=== PATIENT | male | born 1990 | race African-American/Black ===

== ENCOUNTER 2018-05-20 17:00 | Emergency (ER) | payer OTHER ==
[2018-05-20] MEDS ORDERED: IBUPROFEN 400 MG TABLET PO STA (17:03)
--- NOTE | 2018-05-20 17:04 | ED Physician Documentation ---
History of Present Illness - Stated complaint Stated Complaint: L ANKLE INJURY - Additonal information Additional information: hx from pt playing bball inverted ankle pain to lat ankle above post to lat mall no knee or foot pain Review of Systems Musculoskeletal: reports: Pain with weight bearing PD PAST MEDICAL HISTORY - Allergies Allergies/Adverse Reactions: Allergies Allergy/AdvReac Type Severity Reaction Status Date / Time No Known Drug Allergies Allergy Verified 05/20/18 17:16 PD ED PE NORMAL - Vitals Vital signs reviewed: Yes - Extremities Extremities: Other (LLE" knee and tib fib and foot NT, no lat mall pain, TTP soft tissue posterior and sup to lat mall, no open wound, MSV intact) Results - Vitals Vitals: Vital Signs - 24 hr 05/20/18 17:06 Temperature 36.5 C Heart Rate 65 Respiratory 16 Rate Blood Pressure 123/86 H O2 Saturation 100 Oxygen O2 Source Room air - Rads (name of study) ankle Radiology: See rad report (no fx) PD MEDICAL DECISION MAKING - Sepsis Event Vital Signs: Vital Signs - 24 hr 05/20/18 17:06 Temperature 36.5 C Heart Rate 65 Respiratory 16 Rate Blood Pressure 123/86 H O2 Saturation 100 Oxygen O2 Source Room air Departure - Departure Disposition: 01 Home, Self Care Clinical Impression: Left ankle sprain Qualifiers: Encounter type: initial encounter Involved ligament of ankle: unspecified ligament Qualified Code(s): S93.402A - Sprain of unspecified ligament of left ankle, initial encounter Condition: Good Instructions: ED Sprain Ankle W X Ray Follow-Up: [facility] [Provider Group] Comments: Thankfully the xray does not show any fracture Recommend an NUPUR wrap, ice and elevation to decrease the swelling. Motrin and tylneol for pain Use the crutches to decrease the wieght bearing stress May gradually start bearing weight as tolerated. If still too painful to bear weight in 2 weeks, follow up with [facility] for a recheck and consideration of further imaging Physical therapy may be help the ankle heal stronger without laxity - ask [facility] how to access Forms: Activity restrictions
[2018-05-20 17:17] VITALS: BP 123/86
--- NOTE | 2018-05-20 17:54 | XRAY Report ---
Reason: rolled L ankle playing BBall Procedure Date: 05/20/2018 Accession Number: [id number] / [id number] Procedure: XR - Ankle 3 View LT CPT Code: FULL RESULT: EXAM: LEFT ANKLE RADIOGRAPHY EXAM DATE: 05/20/2018 05:34 PM. CLINICAL HISTORY: Ankle pain COMPARISON: None. TECHNIQUE: 3 views. FINDINGS: Bones: No fracture or focal bony lesion. Joints: No evidence of dislocation. Soft Tissues: No unexpected soft tissue findings. IMPRESSION: No evidence of fracture or dislocation. [facility]
== END 2018-05-20 19:39 | disposition home or self-care (01) ==
LOC: ED 17:00
DX: S93.402A Sprain of unspecified ligament of left ankle, initial encounter (principal); X50.1XXA Overexertion from prolonged static or awkward postures, initial encounter; Y93.67 Activity, basketball
CPT/HCPCS: 73610; 99282; 99283; A9270

== ENCOUNTER 2018-07-21 07:47 | Outpatient (CLI) | payer OTHER ==
--- NOTE | 2018-07-21 15:57 | MRI Report ---
Reason: PAIN IN LEFT ANKLE AND JOINTS Procedure Date: 07/21/2018 Accession Number: [id number] / [id number] Procedure: MRI - Ankle LT W/O CPT Code: FULL RESULT: EXAM: LEFT ANKLE/HINDFOOT MRI WITHOUT CONTRAST. EXAM DATE: 07/21/2018 08:02 AM. CLINICAL HISTORY: Left ankle joint pain after inversion injury. COMPARISON: 05/20/2018 radiographs. TECHNIQUE: Multiplanar, multisequence T1-weighted and fluid-sensitive sequences of the ankle/hindfoot without contrast. Other: None. FINDINGS: Bones: No fractures. Edema is in the talus near the sinus tarsi. There is also a small amount of edema in the sustentaculum darya. Articular Cartilage: Unremarkable. Ligaments: The anterior and posterior tibiofibular, anterior and posterior talofibular, and calcaneofibular ligaments are intact. The deep and superficial deltoid and spring ligaments are intact. Anterior Tendons: The tibialis anterior, extensor hallucis longus, and extensor digitorum longus tendons are unremarkable. Medial Tendons: The tibialis posterior, flexor digitorum longus, and flexor hallucis longus tendons are unremarkable. Lateral Tendons: The peroneus brevis tendon demonstrates a longitudinal tear . The peroneus longus tendon is intact. Achilles Tendon: The Achilles tendon is unremarkable. Musculature: No edema or fatty atrophy. Other: There is a mild effusion of the posterior subtalar joint. The contents of the sinus tarsi and tarsal tunnel are unremarkable. No plantar fasciitis. The subcutaneous tissues are unremarkable. IMPRESSION: 1. Bony marrow edema surrounding the sinus tarsi without edema of the fat of the sinus tarsi may indicate residual bony contusion. 2. Longitudinal split tear of the peroneus brevis tendon. [facility] MUSCULOSKELETAL RADIOLOGY SECTION
== END 2018-07-21 07:48 | disposition home or self-care (01) ==
LOC: DI 07:47
PROVIDERS: ATTEND Family Medicine
DX: S96.812A Strain of other specified muscles and tendons at ankle and foot level, left foot, initial encounter (principal)

== ENCOUNTER 2019-09-01 16:15 | Emergency (ER) | payer OTHER ==
[2019-09-01 17:20] LABS: BILIRUBIN,URINE NEGATIVE (NEGATIVE); GLUCOSE, URINE (UA) NEGATIVE (NEGATIVE); KETONES,URINE (UA) NEGATIVE (NEGATIVE); LEUKOCYTE ESTERASE, URINE NEGATIVE (NEGATIVE); NITRITE,URINE NEGATIVE (NEGATIVE); OCCULT BLOOD,URINE NEGATIVE (NEGATIVE); PH,URINE 6.5 PH (5.0-7.5); PROTEIN,URINE NEGATIVE (NEGATIVE); UROBILINOGEN,URINE 0.2 (NORMAL) E.U./dL (NORMAL)
[2019-09-01 17:21] LABS: CLARITY,URINE CLEAR (CLEAR)
[2019-09-01] MEDS ORDERED: AZITHROMYCIN 250 MG TABLET PO STA (18:07)
[2019-09-01] MEDS ORDERED: cefTRIAXone 250 MG VIAL IM STA (18:07)
[2019-09-01] MEDS ORDERED: LIDOCAINE 1% 2 ML VIAL MC ONE (18:07)
--- NOTE | 2019-09-01 18:08 | ED Physician Documentation ---
PD HPI MALE - Stated complaint Stated Complaint: MALE /ABD PX - Chief complaint Chief Complaint: UTI - History obtained from History obtained from: Patient - History of Present Illness Timing - onset: Other (For about 2 or 3 weeks he has had what sound like bladder spasms, frequency, no dysuria but occasional foul smell. He denies risk for STDs, but his significant other is in the room when we talk. No discharge.) Review of Systems Constitutional: denies: Fever, Chills GI: denies: Nausea, Vomiting, Diarrhea : reports: Frequency. denies: Dysuria, Hesitancy, Incontinent PD PAST MEDICAL HISTORY - Past Medical History Past Medical History: Yes Cardiovascular: None Respiratory: None Neuro: Migraines Endocrine/Autoimmune: None GI: None : None HEENT: None Psych: None Musculoskeletal: None Derm: None - Past Surgical History Past Surgical History: No - Allergies Allergies/Adverse Reactions: Allergies Allergy/AdvReac Type Severity Reaction Status Date / Time No Known Drug Allergies Allergy Verified 09/01/19 16:45 - Social History Does the pt smoke?: No Smoking Status: Never smoker Does the pt drink ETOH?: Yes Does the pt have substance abuse?: No - Immunizations Immunizations are current?: Yes - POLST Patient has POLST: No PD ED PE NORMAL - Vitals Vital signs reviewed: Yes - General General: Alert and oriented X 3, No acute distress - Abdomen Abdomen: Soft, Non tender - Male Male : Other (No significant inguinal adenopathy or masses, testes are normal, circumcised genitalia) - Neuro Neuro: Alert and oriented X 3, Normal speech Results - Vitals Vitals: Vital Signs - 24 hr 09/01/19 16:45 Temperature 36.8 C Heart Rate 69 Respiratory 16 Rate Blood Pressure 121/70 O2 Saturation 98 Oxygen O2 Source Room air - Labs Labs: Laboratory Tests 09/01/19 16:54 Urine Color YELLOW Urine Clarity CLEAR Urine pH 6.5 Ur Specific [place] 1.020 Urine Protein NEGATIVE Urine Glucose (UA) NEGATIVE Urine Ketones NEGATIVE Urine Occult Blood NEGATIVE Urine Nitrite NEGATIVE Urine Bilirubin NEGATIVE Urine Urobilinogen 0.2 (NORMAL) Ur Leukocyte Esterase NEGATIVE Ur Microscopic Review NOT INDICATED Urine Culture Comments NOT INDICATED PD MEDICAL DECISION MAKING - ED course ED course: Given his young age, suspicion for STD is high given the normal urinalysis. He is administered Rocephin and Zithromax here. Departure - Departure Disposition: 01 Home, Self Care Clinical Impression: Bladder spasms Condition: Good Record reviewed to determine appropriate education?: Yes Instructions: ED UTI Cystitis Male Comments: If symptoms are persistent despite the antibiotics, call your doctor to arrange a follow-up appointment, I would recommend follow-up with urology in that case for further evaluation and treatment. Return for new or worsening symptoms.
[2019-09-01 18:24] VITALS: BP 127/79
[2019-09-02 16:38] LABS: TRICHOMONAS VAGINALIS DNA NEGATIVE (NEGATIVE)
== END 2019-09-01 18:24 | disposition home or self-care (01) ==
LOC: ED 16:15
DX: N32.89 Other specified disorders of bladder (principal)
CPT/HCPCS: 81003; 87491; 87591; 87661; 96372; 99283; A9270; 81001; 87086

== ENCOUNTER 2020-04-06 22:07 | Emergency (ER) | payer OTHER ==
[2020-04-06] MEDS ORDERED: ONDANSETRON ODT 4 MG TABLET TL STA (23:34)
[2020-04-06] MEDS ORDERED: ONDANSETRON ODT 4 MG Prepack 2 TL PRN (23:34)
--- NOTE | 2020-04-06 23:39 | ED Physician Documentation ---
History of Present Illness - Stated complaint Stated Complaint: NAUSEA, VOMITTING - Chief complaint Chief Complaint: Abd Pain - History obtained from History obtained from: Patient - Additonal information Additional information: Patient comes emergency department complaining of vomiting that started this evening. He states he began to feel nauseated around 2100 after having a normal and dairy dessert at [facility]. Patient states he is lactose intolerant but that he did not eat any dairy this evening. He states that he has not had any fevers or chills and no sick contacts. No diarrhea. He states that by 2200 this evening, he began to vomit. States he vomited a number of times until his stomach was empty, and then since then, he has been having nausea that comes and goes. He has had one other episode of vomiting which was just bile. No other complaints at this time. Review of Systems Ten Systems: 10 systems reviewed and negative Constitutional: reports: Reviewed and negative Eyes: reports: Reviewed and negative Ears: reports: Reviewed and negative Nose: reports: Reviewed and negative Throat: reports: Reviewed and negative Cardiac: reports: Reviewed and negative Respiratory: reports: Reviewed and negative GI: reports: Nausea, Vomiting : reports: Reviewed and negative Skin: reports: Reviewed and negative Musculoskeletal: reports: Reviewed and negative Neurologic: reports: Reviewed and negative Psychiatric: reports: Reviewed and negative Endocrine: reports: Reviewed and negative Immunocompromised: reports: Reviewed and negative PD PAST MEDICAL HISTORY - Past Medical History Past Medical History: Yes Cardiovascular: None Respiratory: None Neuro: Migraines Endocrine/Autoimmune: None GI: None : None HEENT: None Psych: Other Musculoskeletal: None Derm: None Other Past Medical History: Insomnia - Past Surgical History Past Surgical History: No - Present Medications Home Medications: Ambulatory Orders Medication Instructions Recorded Confirmed Ondansetron Odt [Zofran Odt] 4 mg TL Q6H PRN #10 tablet 04/06/20 traZODone [Desyrel] 50 mg PO HS PRN 04/06/20 04/06/20 - Allergies Allergies/Adverse Reactions: Allergies Allergy/AdvReac Type Severity Reaction Status Date / Time No Known Drug Allergies Allergy Verified 04/06/20 22:16 - Social History Does the pt smoke?: No Smoking Status: Never smoker Does the pt drink ETOH?: Yes Does the pt have substance abuse?: No - Immunizations Immunizations are current?: Yes - POLST Patient has POLST: No PD ED PE NORMAL - Vitals Vital signs reviewed: Yes - General General: Alert and oriented X 3, No acute distress - HEENT HEENT: Atraumatic, PERRL, EOMI, Moist mucous membranes - Neck Neck: Supple, no meningeal sign - Cardiac Cardiac: RRR, No murmur - Respiratory Respiratory: No respiratory distress, Clear bilaterally - Abdomen Abdomen: Soft, Non tender, Non distended - Back Back: Other (Grossly normal range of motion.) - Derm Derm: Normal color, Warm and dry, No rash - Extremities Extremities: No deformity - Neuro Neuro: Alert and oriented X 3 - Psych Psych: Normal mood, Normal affect Results - Vitals Vitals: Vital Signs - 24 hr 04/06/20 04/06/20 22:10 23:03 Temperature 36.9 C Heart Rate 78 68 Respiratory 16 18 Rate Blood Pressure 133/79 H 127/67 O2 Saturation 96 100 Oxygen O2 Source Room air PD MEDICAL DECISION MAKING - ED course Complexity details: considered differential, d/w patient ED course: I discussed with the patient that we could give him IV fluids and IV antiemetics, or that he could have a dose of oral dissolving Zofran here and to be discharged. Patient opted for the latter option, stating he would rather just go home and get some rest. I give him a dose of Zofran here as well as a prepack to have at home for the rest of the night. I have also given him a prescription for a couple more days worth of Zofran. We have discussed home management of the symptoms, as well as the usual indications for return Departure - Departure Disposition: 01 Home, Self Care Clinical Impression: Vomiting Qualifiers: Vomiting type: bilious vomiting Nausea presence: with nausea Qualified Code(s): R11.14 - Bilious vomiting Condition: Stable Instructions: ED Nausea Vomiting Prescriptions: Ondansetron Odt [Zofran Odt] 4 mg TL Q6H PRN #10 tablet PRN Reason: Nausea / Vomiting
[2020-04-06 23:50] VITALS: BP 126/79
== END 2020-04-06 23:50 | disposition home or self-care (01) ==
LOC: ED 22:07
DX: R11.14 Bilious vomiting (principal)
CPT/HCPCS: 99282; 99283; Q0162